=== PATIENT | male | born 1970 | race Caucasian/White ===

== ENCOUNTER 2023-10-01 13:20 | Inpatient (IN) | payer MEDICARE, OTHER ==
[~2023-10-01] VITALS: Ht 167.6 cm; Wt 75.0 kg
[2023-10-01 13:40] VITALS: BP 142/60; PULSE 65; RESP 18; TEMP 98.1; O2SAT 98
[2023-10-01] MEDS ORDERED: ACETAMINOPHEN 325 MG TABLET PO PRN (14:30)
[2023-10-01] MEDS ORDERED: DEXTROSE 50%-WATER 25 GM/50 ML SYRINGE IVP PRN (14:45)
[2023-10-01 16:40] VITALS: BP 158/82; PULSE 71
[2023-10-01] MEDS: HydrALAZINE HCL 50 MG TABLET PO SCH (16:47)
[2023-10-01 18:11] LABS: GLUCOMETER DEV NAME(LOC) 2WR.2B; GLUCOSE,POINT OF CARE 114 MG/DL (70-110)
[2023-10-01 19:51] VITALS: BP 136/65; PULSE 84; RESP 18; TEMP 98.3; O2SAT 96
[2023-10-01] MEDS: MELATONIN 3 MG TABLET PO PRN (19:54)
[2023-10-01] MEDS: ETHYL ALCOHOL 62% ANTISEPTIC NASAL SANITIZER 0.6 ML AMPUL NASAL SCH (19:54)
[2023-10-01] MEDS: SENNOSIDES 8.6 MG TABLET PO SCH (19:54)
[2023-10-01] MEDS: ATORVASTATIN CALCIUM 40 MG TABLET PO SCH (19:54)
[2023-10-01] MEDS: CARVEDILOL 6.25 MG TABLET PO SCH (19:54)
[2023-10-01] MEDS: DOCUSATE SODIUM 100 MG CAPSULE PO SCH (19:54)
[2023-10-01] MEDS: INSULIN GLARGINE,HUM.REC.ANLOG 100 UNITS/ML SQ SCH (20:00)
[2023-10-01] MEDS: INSULIN LISPRO 100 UNITS/ML SQ PRN (20:01)
[2023-10-01 21:21] LABS: GLUCOMETER DEV NAME(LOC) 2WR.2B; GLUCOSE,POINT OF CARE 215 MG/DL (70-110)
[2023-10-01 22:36] VITALS: O2SAT 96
[2023-10-02 07:01] LABS: GLUCOMETER DEV NAME(LOC) 2WR.2B; GLUCOSE,POINT OF CARE 125 MG/DL (70-110)
[2023-10-02 07:53] LABS: BASOPHILS % (AUTO) 1.4 % (0.0-2.0); EOSINOPHILS % (AUTO) 6.1 % (1.0-6.0); HEMATOCRIT 44.7 % (41-53); HEMOGLOBIN 14.9 g/dL (13.5-17.5); LYMPHOCYTES # (AUTO) 1.5 K/uL (1.0-4.8); LYMPHOCYTES % (AUTO) 22.3 % (22.0-44.0); MEAN CORPUSCULAR HEMOGLOBIN 31.1 pg (26.0-34.0); MEAN CORPUSCULAR HGB CONC 33.4 G/dL (31.0-37.0); MEAN CORPUSCULAR VOLUME 93 fL (80-100); MONOCYTES # (AUTO) 0.7 K/uL (0.1-1.0); MONOCYTES % (AUTO) 9.8 % (2.0-9.0); NEUTROPHILS # (AUTO) 4.2 K/uL (1.8-7.7); NEUTROPHILS % (AUTO) 60.4 % (40.0-70.0); PLATELET COUNT (AUTO) 359 K/uL (150-450); RED BLOOD CELL COUNT(AUTO) 4.81 MIL/uL (4.50-5.90); RED CELL DISTRIBUTION WIDTH 12.9 % (11.5-14.5); WHITE BLOOD COUNT (AUTO) 6.9 K/uL (4.5-11.0)
[2023-10-02 08:05] VITALS: BP 131/62; PULSE 70; RESP 19; TEMP 98; O2SAT 97
[2023-10-02 08:15] LABS: ALBUMIN 1.9 g/dL (3.4-5.0); BILIRUBIN,TOTAL 0.2 mg/dL (0.1-1.0); CREATININE 2.21 mg/dL (0.60-1.30); POTASSIUM 3.8 mmol/L (3.5-5.1); TOTAL PROTEIN, SERUM 5.8 g/dL (6.4-8.2)
[2023-10-02 08:20] LABS: CALCIUM, TOTAL 8.7 mg/dL (8.8-10.5)
[2023-10-02] MEDS: ENOXAPARIN SODIUM 40 MG/0.4 ML PF SYRINGE SQ SCH (08:31)
[2023-10-02] MEDS: DOCUSATE SODIUM 250 MG CAPSULE PO SCH (08:32)
[2023-10-02] MEDS: ASPIRIN 81 MG CHEWABLE TABLET PO SCH (08:32)
[2023-10-02] MEDS: AmLODIPine BESYLATE 10 MG TABLET PO SCH (08:33)
[2023-10-02 11:51] LABS: GLUCOMETER DEV NAME(LOC) 2WR.2B; GLUCOSE,POINT OF CARE 271 MG/DL (70-110)
[2023-10-02 16:00] VITALS: BP 140/74; PULSE 78; RESP 18; TEMP 98.4; O2SAT 98
[2023-10-02] MEDS: HEPARIN SODIUM,PORCINE 5,000 UNITS/ML VIAL SQ SCH (16:08)
[2023-10-02 17:06] LABS: GLUCOMETER DEV NAME(LOC) 2WR.1D; GLUCOSE,POINT OF CARE 497 MG/DL (70-110)
[2023-10-02 17:14] VITALS: O2SAT 98
[2023-10-02] MEDS ORDERED: DEXTROSE 5%-WATER 250 ML IV ONE (18:00)
[2023-10-02] MEDS: INSULIN LISPRO 100 UNITS/ML SQ PRN (18:20)
[2023-10-02 18:27] VITALS: BP 137/78; PULSE 72; RESP 18; TEMP 98.1; O2SAT 96
[2023-10-02] MEDS: *PATIENT'S OWN MED [ENTER DRUG, DOSE, FREQUENCY IN COMMENTS] CLINICAL ONE (19:26)
[2023-10-02 19:31] VITALS: BP 146/93; PULSE 67; RESP 18; TEMP 98.4; O2SAT 98
[2023-10-02 19:31] LABS: GLUCOMETER DEV NAME(LOC) 2WR.1D; GLUCOSE,POINT OF CARE 600 MG/DL (70-110)
[2023-10-02] MEDS: INSULIN GLARGINE,HUM.REC.ANLOG 100 UNITS/ML SQ SCH (20:05)
[2023-10-02] MEDS: TRULICITY 1.5 MG SQ SCH (20:28)
[2023-10-02 20:36] LABS: GLUCOMETER DEV NAME(LOC) 2WR.1D; GLUCOSE,POINT OF CARE 551 MG/DL (70-110)
[2023-10-02] MEDS: INSULIN LISPRO 100 UNITS/ML SQ ONE (20:44)
[2023-10-02 21:00] VITALS: BP 146/93; PULSE 63; RESP 18; TEMP 98.4; O2SAT 98
[2023-10-02] MEDS ORDERED: INSULIN GLARGINE,HUM.REC.ANLOG 100 UNITS/ML SQ SCH (21:00)
[2023-10-02 21:10] LABS: GLUCOMETER DEV NAME(LOC) 2WR.1D; GLUCOSE,POINT OF CARE 355 MG/DL (70-110)
[2023-10-02 22:36] LABS: GLUCOMETER DEV NAME(LOC) 2WR.1D; GLUCOSE,POINT OF CARE 212 MG/DL (70-110)
[2023-10-02] MEDS ORDERED: DULA1.5P SQ (23:17)
[2023-10-02] MEDS ORDERED: IRBE150T51 PO (23:17)
[2023-10-02] MEDS ORDERED: METF-1211 PO (23:17)
[2023-10-02] MEDS ORDERED: MECL-226 PO (23:17)
[2023-10-02] MEDS ORDERED: CARV6 PO (23:17)
[2023-10-03] MEDS ORDERED: INSLAN SQ ×2 (03:40)
[2023-10-03] MEDS ORDERED: AMLO-258 PO (03:40)
[2023-10-03] MEDS ORDERED: HYDR10TA31 PO (03:40)
[2023-10-03] MEDS ORDERED: DOCU-412 PO (03:40)
[2023-10-03] MEDS ORDERED: ATOR40TA28 PO (03:40)
[2023-10-03] MEDS ORDERED: ASPI-1450 PO (03:40)
[2023-10-03] MEDS ORDERED: SENN1TAB86 PO (03:45)
[2023-10-03] MEDS ORDERED: INSU100V SQ (03:47)
[2023-10-03 06:51] LABS: GLUCOMETER DEV NAME(LOC) 2WR.2B; GLUCOSE,POINT OF CARE 155 MG/DL (70-110)
[2023-10-03 08:05] VITALS: BP 133/82; PULSE 65; RESP 18; TEMP 98.4; O2SAT 98
[2023-10-03] MEDS: INSULIN GLARGINE,HUM.REC.ANLOG 100 UNITS/ML SQ SCH (08:20)
[2023-10-03 11:56] LABS: GLUCOMETER DEV NAME(LOC) 2WR.2B; GLUCOSE,POINT OF CARE 229 MG/DL (70-110)
[2023-10-03 16:30] VITALS: BP 133/89; PULSE 73
[2023-10-03 17:16] LABS: GLUCOMETER DEV NAME(LOC) 2WR.2B; GLUCOSE,POINT OF CARE 186 MG/DL (70-110)
[2023-10-03 20:02] VITALS: BP 148/104; PULSE 77; RESP 18; TEMP 97.4; O2SAT 97
[2023-10-03 20:22] VITALS: O2SAT 97
[2023-10-03 20:36] LABS: GLUCOMETER DEV NAME(LOC) 2WR.2B; GLUCOSE,POINT OF CARE 214 MG/DL (70-110)
[2023-10-04 06:45] LABS: GLUCOMETER DEV NAME(LOC) 2WR.2B; GLUCOSE,POINT OF CARE 119 MG/DL (70-110)
[2023-10-04 09:13] VITALS: O2SAT 98
[2023-10-04 09:19] VITALS: BP 130/67; PULSE 78; RESP 18; TEMP 98; O2SAT 98
[2023-10-04 11:51] LABS: GLUCOMETER DEV NAME(LOC) 2WR.1D; GLUCOSE,POINT OF CARE 212 MG/DL (70-110)
[2023-10-04] MEDS: PANTOPRAZOLE SODIUM 40 MG DR TABLET PO SCH (12:10)
[2023-10-04] MEDS: INFLUENZA VIRUS VACCINE QVS 2023-24 (6MO+)/PF 60 MCG/0.5 ML SYRINGE IM. ONE (14:01)
[2023-10-04 16:33] VITALS: BP 138/78; PULSE 76; RESP 18; O2SAT 98
[2023-10-04 17:06] LABS: GLUCOMETER DEV NAME(LOC) 2WR.2B; GLUCOSE,POINT OF CARE 218 MG/DL (70-110)
[2023-10-04] MEDS ORDERED: MECL-302 PO (17:45)
[2023-10-04 20:04] VITALS: BP 143/74; PULSE 73; RESP 18; TEMP 98.4; O2SAT 97
[2023-10-04 21:06] LABS: GLUCOMETER DEV NAME(LOC) 2WR.2B; GLUCOSE,POINT OF CARE 172 MG/DL (70-110)
[2023-10-04 23:54] VITALS: O2SAT 97
[2023-10-05] VITALS (9 sets, daily range): BP systolic 144–174; BP diastolic 69–102; PULSE 66–81; RESP 18–19; TEMP 97.9–98.4; O2SAT 97–98
[2023-10-05 06:41] LABS: GLUCOMETER DEV NAME(LOC) 2WR.1D; GLUCOSE,POINT OF CARE 128 MG/DL (70-110)
[2023-10-05 13:01] LABS: GLUCOMETER DEV NAME(LOC) 2WR.2B; GLUCOSE,POINT OF CARE 167 MG/DL (70-110)
[2023-10-05] MEDS ORDERED: LOSARTAN POTASSIUM 25 MG TABLET PO SCH (17:30)
[2023-10-05 17:41] LABS: GLUCOMETER DEV NAME(LOC) 2WR.2B; GLUCOSE,POINT OF CARE 306 MG/DL (70-110)
[2023-10-05] MEDS: LOSARTAN POTASSIUM 25 MG TABLET PO SCH (17:45)
[2023-10-05 21:56] LABS: GLUCOMETER DEV NAME(LOC) 2WR.2B; GLUCOSE,POINT OF CARE 143 MG/DL (70-110)
[2023-10-06 08:05] VITALS: BP 141/65; PULSE 70; RESP 18; TEMP 98.4; O2SAT 98
[2023-10-06 08:06] LABS: GLUCOMETER DEV NAME(LOC) 2WR.1D; GLUCOSE,POINT OF CARE 148 MG/DL (70-110)
[2023-10-06 08:34] LABS: CALCIUM, TOTAL 9.4 mg/dL (8.8-10.5); CREATININE 2.17 mg/dL (0.60-1.30); POTASSIUM 4.4 mmol/L (3.5-5.1)
[2023-10-06 11:41] LABS: GLUCOMETER DEV NAME(LOC) 2WR.1D; GLUCOSE,POINT OF CARE 299 MG/DL (70-110)
[2023-10-06 16:25] VITALS: BP 142/70; PULSE 78; RESP 18; O2SAT 98
[2023-10-06 17:06] LABS: GLUCOMETER DEV NAME(LOC) 2WR.2B; GLUCOSE,POINT OF CARE 140 MG/DL (70-110)
[2023-10-06 18:00] VITALS: O2SAT 98
[2023-10-06 20:00] VITALS: BP 156/94; PULSE 74; RESP 19; TEMP 97.6; O2SAT 95
[2023-10-06 21:26] LABS: GLUCOMETER DEV NAME(LOC) 2WR.2B; GLUCOSE,POINT OF CARE 311 MG/DL (70-110)
[2023-10-07 06:56] LABS: GLUCOMETER DEV NAME(LOC) 2WR.2B; GLUCOSE,POINT OF CARE 134 MG/DL (70-110)
[2023-10-07 08:00] VITALS: BP 153/90; PULSE 74; RESP 19; TEMP 97.9; O2SAT 95
[2023-10-07] MEDS: INSULIN GLARGINE,HUM.REC.ANLOG 100 UNITS/ML SQ SCH (08:47)
[2023-10-07] MEDS ORDERED: CARV6 PO (09:19)
[2023-10-07] MEDS ORDERED: HYDR50TA37 PO (09:19)
[2023-10-07] MEDS ORDERED: PANT-31 PO (09:19)
[2023-10-07] MEDS ORDERED: INSLAN SQ ×2 (09:19)
[2023-10-07] MEDS ORDERED: FOLI-130 SQ (09:19)
[2023-10-07] MEDS ORDERED: ATOR40TA71 PO (09:19)
[2023-10-07] MEDS ORDERED: AMLO-258 PO (09:19)
[2023-10-07] MEDS ORDERED: INSU100V SQ (09:19)
[2023-10-07] MEDS ORDERED: ASPI-1450 PO (09:19)
[2023-10-07] MEDS ORDERED: LOSA-417 PO (09:19)
[2023-10-07 11:41] LABS: GLUCOMETER DEV NAME(LOC) 2WR.2B; GLUCOSE,POINT OF CARE 265 MG/DL (70-110)
== END 2023-10-07 13:00 | disposition home or self-care (01) | DRG 56 ==
LOC: 2WR 13:20
PROVIDERS: ADMIT Physical Medicine & Rehabilitation; ATTEND Physical Medicine & Rehabilitation
DX: G81.94 Hemiplegia, unspecified affecting left nondominant side (principal); I63.9 Cerebral infarction, unspecified; E46 Unspecified protein-calorie malnutrition; N17.9 Acute kidney failure, unspecified; R45.87 Impulsiveness; N18.30 Chronic kidney disease, stage 3 unspecified; E11.65 Type 2 diabetes mellitus with hyperglycemia; E11.22 Type 2 diabetes mellitus with diabetic chronic kidney disease; I12.9 Hypertensive chronic kidney disease with stage 1 through stage 4 chronic kidney disease, or unspecified chronic kidney disease; R41.89 Other symptoms and signs involving cognitive functions and awareness; D63.8 Anemia in other chronic diseases classified elsewhere; E78.00 Pure hypercholesterolemia, unspecified; I25.10 Atherosclerotic heart disease of native coronary artery without angina pectoris; R26.81 Unsteadiness on feet; R42 Dizziness and giddiness; R51.9 Headache, unspecified; I48.91 Unspecified atrial fibrillation; Z87.442 Personal history of urinary calculi; Z68.26 Body mass index [BMI] 26.0-26.9, adult; Z83.3 Family history of diabetes mellitus
CPT/HCPCS: 80048; 80053; 82962; 85025; 87081; 90686; 92507; 92610; 97110; 97112; 97116; 97162; 97166; 97530; 97535; 99366; J1644; J1650; J1815; J7060; Q9967